=== PATIENT | female | born 1935 | race Caucasian/White ===

== ENCOUNTER 2017-09-14 14:50 | Emergency (ER) | payer OTHER, BC ==
[~2017-09-14] VITALS: Ht 170.2 cm; Wt 68.0 kg
[2017-09-14 14:55] VITALS: BP_SYST 168
--- NOTE | 2017-09-14 14:55 | NUR ---
Pt was brought in by BLS, complains of nose bleed x 3 today. Pt is AAO x 1. Upon arrival, no visual of bleeding. EMT reported, facility states she had been "bleeding from the nose 3 times today." No other injuries/complaints per patient or noted.
--- NOTE | 2017-09-14 15:00 | NUR ---
ER Dr. Thompson at bedside examining patient.
[2017-09-14 15:26] LABS: BASOPHILS % (AUTO) 0.5 % (0.0-2.0); EOSINOPHILS # (AUTO) 0.2 K/uL (0.0-0.4); EOSINOPHILS % (AUTO) 2.4 % (0.0-4.0); HEMATOCRIT 29.3 % (36-48); HEMOGLOBIN 9.6 g/dL (12.0-16.0); LYMPHOCYTES # (AUTO) 1.2 K/uL (1.0-5.5); LYMPHOCYTES % (AUTO) 16.6 % (20.5-51.5); MEAN CORPUSCULAR HEMOGLOBIN 31 pg (27-31); MEAN CORPUSCULAR HGB CONC 33 % (32-36); MEAN CORPUSCULAR VOLUME 93 fL (79.0-98.0); MONOCYTES # (AUTO) 0.6 K/uL (0.0-1.0); MONOCYTES % (AUTO) 7.7 % (1.7-9.3); NEUTROPHILS # (AUTO) 5.4 K/uL (1.8-7.7); NEUTROPHILS % (AUTO) 72.8 % (40.0-70.0); PLATELET COUNT (AUTO) 225 K/uL (130-430); RED BLOOD CELL COUNT(AUTO) 3.14 MIL/uL (4.2-6.2); RED CELL DISTRIBUTION WIDTH 12.5 % (9.0-15.0); WHITE BLOOD COUNT (AUTO) 7.4 K/uL (4.8-10.8)
[2017-09-14 15:35] LABS: ANION GAP 5 (5-15); CALCIUM 8.5 mg/dL (8.4-11.0); CHLORIDE 107 mmol/L (98-107); CREATININE 0.71 mg/dL (0.55-1.30); GLUCOSE 153 mg/dL (70-99); POTASSIUM 3.7 mmol/L (3.5-5.1); SODIUM SERUM 140 mmol/L (136-145); UREA NITROGEN, BLOOD 23 mg/dL (8-21)
[2017-09-14 15:40] LABS: ALANINE AMINOTRANSFERASE 20 U/L (12-78); ALBUMIN 2.4 g/dL (3.4-4.8); ASPARTATE AMINOTRANSFERASE 29 U/L (10-37); TOTAL BILIRUBIN 0.3 mg/dL (0.0-1.0)
--- NOTE | 2017-09-14 15:45 | NUR ---
Patient had bowel movement. Patient was cleaned and linens changed. Voiced no complaints or needs.
--- NOTE | 2017-09-14 16:11 | NUR ---
Patient to be transferred to [facility]. Is being transferred due to higher level of care. Receiving facility has accepting physician and available space. ER physician has signed transfer form. Patient or responsible democrat has agreed to transfer and signed form. Patient belongings inventoried and will be sent with patient. Copy of nursing notes, lab reports, EKG, Physicians Orders and X-rays to be sent with patient. Report called to JALEN RAYMUNDO at receiving facility. Receiving physician is DR. MAY. [facility] ambulance service has been called for transfer. ETA is [id number]
[2017-09-14 16:41] VITALS: BP_SYST 142
--- NOTE | 2017-09-14 16:41 | NUR ---
Amilcar Day here for transfer. Report given.
[2017-09-16] MEDS ORDERED: DOCU-144 PO (13:55)
[2017-09-16] MEDS ORDERED: SSNOVOLOG SUBCUT (13:55)
[2017-09-16] MEDS ORDERED: LIP20 PO (13:55)
[2017-09-16] MEDS ORDERED: HYDR-1189 PO (13:55)
[2017-09-16] MEDS ORDERED: CARV12.548 PO (13:55)
[2017-09-16] MEDS ORDERED: TEMA15CA51 PO (13:55)
[2017-09-16] MEDS ORDERED: IPRA3AMP9 INH ×2 (13:55)
[2017-09-16] MEDS ORDERED: SENN-153 PO (13:55)
[2017-09-16] MEDS ORDERED: ONDA4TAB5 PO (13:55)
[2017-09-16] MEDS ORDERED: ACET325T53 PO (13:55)
[2017-09-16] MEDS ORDERED: CEFA1PIG IV (13:55)
== END 2017-09-14 16:14 | disposition home or self-care (01) ==
LOC: SED 14:50
DX: R04.0 Epistaxis (principal); I10 Essential (primary) hypertension; E11.9 Type 2 diabetes mellitus without complications; E78.5 Hyperlipidemia, unspecified; F03.90 Unspecified dementia, unspecified severity, without behavioral disturbance, psychotic disturbance, mood disturbance, and anxiety
CPT/HCPCS: 36415; 80053; 85025; 85610-TC; 85730-TC; 99284

== ENCOUNTER 2017-10-13 12:22 | Inpatient (IN) | payer OTHER, BC ==
[~2017-10-13] VITALS: Ht 160 cm; Wt 61.2 kg
[2017-10-13 12:22] VITALS: BP_SYST 133
[~2017-10-13 12:22] MED LIST: ACET325T53 PO; CARV12.548 PO; CEFA1PIG IV; DOCU-144 PO; FERR240T5 PO; HYDR-1189 PO; IPRA3AMP9 INH; LIP20 PO; LR 1,000 ML IV.SOLN IV ONE; MIDAZOLAM HCL 5 MG/ML VIAL (VERSED) IV ONE; MORPHINE SULFATE 10MG/10ML PF AMP EP ONE; MULT PO; NS IRRIG SOLN 1000 ML IR ONE; ONDA4TAB5 PO; ONDANSETRON HCL 4 MG/2 ML VIAL IVP ONE; OXYTOCIN 10 UNIT/ML VIAL IV ONE; SENN-153 PO; SSNOVOLOG SUBCUT; TEMA15CA51 PO; ePHEDrine sulfate 50 MG/ML VIAL IVP ONE
[2017-10-13 13:49] LABS: BASOPHILS % (AUTO) 0.9 % (0.0-2.0); EOSINOPHILS # (AUTO) 0.1 K/uL (0.0-0.4); EOSINOPHILS % (AUTO) 2.1 % (0.0-4.0); HEMATOCRIT 31.5 % (36-48); LYMPHOCYTES # (AUTO) 1.1 K/uL (1.0-5.5); LYMPHOCYTES % (AUTO) 21.8 % (20.5-51.5); MEAN CORPUSCULAR HEMOGLOBIN 29 pg (27-31); MEAN CORPUSCULAR HGB CONC 32 % (32-36); MEAN CORPUSCULAR VOLUME 91 fL (79.0-98.0); MONOCYTES # (AUTO) 0.3 K/uL (0.0-1.0); MONOCYTES % (AUTO) 6.6 % (1.7-9.3); NEUTROPHILS # (AUTO) 3.7 K/uL (1.8-7.7); NEUTROPHILS % (AUTO) 68.6 % (40.0-70.0); PLATELET COUNT (AUTO) 275 K/uL (130-430); RED BLOOD CELL COUNT(AUTO) 3.46 MIL/uL (4.2-6.2); RED CELL DISTRIBUTION WIDTH 13.9 % (9.0-15.0); WHITE BLOOD COUNT (AUTO) 5.2 K/uL (4.8-10.8)
[2017-10-13 14:00] LABS: ANION GAP 3 (5-15); CALCIUM 8.9 mg/dL (8.4-11.0); CHLORIDE 106 mmol/L (98-107); CREATININE 0.85 mg/dL (0.55-1.30); GLUCOSE 155 mg/dL (70-99); POTASSIUM 4.1 mmol/L (3.5-5.1); PROTHROMBIN TIME 10.4 SECS (9.5-12.5); SODIUM SERUM 139 mmol/L (136-145); UREA NITROGEN, BLOOD 31 mg/dL (8-21)
[2017-10-13 14:05] LABS: ALANINE AMINOTRANSFERASE 28 U/L (12-78); ALBUMIN 2.8 g/dL (3.4-4.8); ASPARTATE AMINOTRANSFERASE 22 U/L (10-37); TOTAL BILIRUBIN 0.3 mg/dL (0.0-1.0)
[2017-10-13 15:20] VITALS: BP_SYST 152
[2017-10-13 16:00] VITALS: BP_SYST 152
[2017-10-13 20:00] VITALS: BP_SYST 149
[2017-10-13] MEDS ORDERED: ACETAMINOPHEN 325 MG TABLET PO PRN (21:45)
[2017-10-13] MEDS ORDERED: IPRATROPIUM/ALBUTEROL SULFATE 3 ML AMPUL.NEB INH PRN (21:45)
[2017-10-13] MEDS ORDERED: HYDROcodone/ACETAMIN 5-325 MG TAB (NORCO/ VICODIN) PO PRN (21:45)
[2017-10-13] MEDS ORDERED: DEXTROSE 50% JECT 50 ML DISP.SYRIN IVP PRN (21:45)
[2017-10-13] MEDS ORDERED: ONDANSETRON 4 MG ODT TAB PO PRN (21:45)
[2017-10-13] MEDS ORDERED: ALPRAZolam 0.25 MG TABLET PO ONE (22:15)
[2017-10-13] MEDS: TEMAZEPAM 15 MG CAPSULE PO PRN (23:11)
[2017-10-14 00:30] VITALS: BP_SYST 149
[2017-10-14] MEDS: IPRATROPIUM/ALBUTEROL SULFATE 3 ML AMPUL.NEB INH SCH ×4 (02:13→19:23)
[2017-10-14 08:00] VITALS: BP_SYST 194
[2017-10-14] MEDS: DOCUSATE SODIUM 100 MG CAPSULE PO SCH ×2 (08:23→20:19)
[2017-10-14] MEDS: MULTIVITAMINS TAB 1 TABLET PO SCH (08:23)
[2017-10-14] MEDS ORDERED: CARVEDILOL 12.5 MG TABLET (COREG) PO SCH (09:00)
[2017-10-14] MEDS ORDERED: ENALAPRILAT DIHYDRATE 1.25 MG/ML VIAL IVP PRN (09:00)
[2017-10-14] MEDS ORDERED: cloNIDine HCL 0.1 MG TABLET PO PRN (09:00)
[2017-10-14] MEDS ORDERED: hydrALAZINE HCL 20 MG/ML VIAL IVP PRN (09:00)
[2017-10-14] MEDS: INSULIN REGULAR, HUMAN 100 UNITS/ML, 10 ML VIAL (novoLIN R) SUBCUT PRN ×2 (11:24→23:32)
[2017-10-14 12:41] VITALS: BP_SYST 158
[2017-10-14 16:30] VITALS: BP_SYST 131
[2017-10-14] MEDS: TEMAZEPAM 15 MG CAPSULE PO PRN (18:36)
[2017-10-14 20:00] VITALS: BP_SYST 158
[2017-10-14] MEDS: CARVEDILOL 6.25 MG TABLET (COREG) PO SCH (20:19)
[2017-10-14] MEDS: hydrALAZINE HCL 10 MG TABLET PO SCH (20:20)
[2017-10-14] MEDS ORDERED: SENNOSIDES 8.6 MG TABLET PO SCH (21:00)
[2017-10-14] MEDS ORDERED: ATORVASTATIN 20 MG TABLET PO SCH (21:00)
[2017-10-14 23:44] VITALS: BP_SYST 137
[2017-10-15] MEDS: IPRATROPIUM/ALBUTEROL SULFATE 3 ML AMPUL.NEB INH SCH ×2 (00:17→14:22)
[2017-10-15 05:20] VITALS: BP_SYST 184
[2017-10-15 06:28] VITALS: BP_SYST 143
[2017-10-15 08:14] VITALS: BP_SYST 138
[2017-10-15] MEDS: MULTIVITAMINS TAB 1 TABLET PO SCH (09:24)
[2017-10-15] MEDS: DOCUSATE SODIUM 100 MG CAPSULE PO SCH (09:24)
[2017-10-15] MEDS: hydrALAZINE HCL 10 MG TABLET PO SCH (09:25)
[2017-10-15] MEDS: CARVEDILOL 6.25 MG TABLET (COREG) PO SCH (09:25)
[2017-10-15] MEDS: INSULIN REGULAR, HUMAN 100 UNITS/ML, 10 ML VIAL (novoLIN R) SUBCUT PRN (11:40)
[2017-10-15 12:00] VITALS: BP_SYST 110
[2017-10-15 12:31] VITALS: BP_SYST 138
[2017-10-15 16:12] VITALS: BP_SYST 106
== END 2017-10-15 17:40 | DRG 312 ==
LOC: SED 12:22 → STU 14:55
PROVIDERS: ADMIT Internal Medicine Hospice and Palliative Medicine; ATTEND Internal Medicine Hospice and Palliative Medicine
DX: R55 Syncope and collapse (principal); E46 Unspecified protein-calorie malnutrition; D64.9 Anemia, unspecified; G30.9 Alzheimer's disease, unspecified; E11.9 Type 2 diabetes mellitus without complications; F02.80 Dementia in other diseases classified elsewhere, unspecified severity, without behavioral disturbance, psychotic disturbance, mood disturbance, and anxiety; E78.5 Hyperlipidemia, unspecified; I10 Essential (primary) hypertension; Z79.899 Other long term (current) drug therapy; Z90.49 Acquired absence of other specified parts of digestive tract; Z86.73 Personal history of transient ischemic attack (TIA), and cerebral infarction without residual deficits; Z68.23 Body mass index [BMI] 23.0-23.9, adult
CPT/HCPCS: 36415; 70450-TC; 71045; 80053; 82962; 83880; 84484; 85025; 85610-TC; 85730-TC; 87081; 93005; 94640; 94760; 99285; J1815; J2250; J2274; J2405; J2590; J7120